=== PATIENT | male | born 1995 | race Caucasian/White ===

== ENCOUNTER 2023-04-29 02:37 | Inpatient (IN) | payer OTHER ==
[~2023-04-29] VITALS: Ht 175.3 cm; Wt 78.2 kg
[2023-04-29 03:26] LABS: HEMATOCRIT 48.6 % (42.0-52.0); MEAN CORPUSCULAR HEMOGLOBIN 31.4 pg (27.0-33.0); MEAN CORPUSCULAR VOLUME 89.7 fl (80.0-96.0); PLATELET COUNT, AUTOMATED 324 10^3/uL (150-450); RED BLOOD COUNT 5.42 10^6/uL (4.30-6.10); WHITE BLOOD COUNT 7.2 10^3/uL (4.0-10.0)
[2023-04-29 03:38] LABS: AMPHETAMINES LEVEL URINE NEGATIVE (NEGATIVE); BARBITURATES URINE NEGATIVE (NEGATIVE); BENZODIAZEPINES URINE NEGATIVE (NEGATIVE); METHADONE URINE NEGATIVE (NEGATIVE)
[2023-04-29 03:39] LABS: CANNABINOIDS URINE NEGATIVE (NEGATIVE); OPIATES URINE NEGATIVE (NEGATIVE); PHENCYCLIDINE URINE NEGATIVE (NEGATIVE)
[2023-04-29 03:41] LABS: COCAINE METABOLITE URINE POSITIVE (NEGATIVE)
[2023-04-29 03:46] LABS: ETHYL ALCOHOL (ETHANOL) 0.166 % (0.000-0.010)
[2023-04-29 03:48] LABS: ALBUMIN 4.6 G/DL (3.2-5.2); ALKALINE PHOSPHATASE 86 U/L (46-116); ALT/SGPT 17 U/L (7.0-40); AST/SGOT 15 U/L (<34); BILIRUBIN,DIRECT 0.2 MG/DL (<0.4); BILIRUBIN,TOTAL 0.5 MG/DL (0.3-1.2); BLOOD UREA NITROGEN 7 MG/DL (9-23); CALCIUM LEVEL 9.8 MG/DL (8.5-10.1); CARBON DIOXIDE LEVEL 23 MMOL/L (20-31); CHLORIDE LEVEL 103 MMOL/L (98-107); CREATININE FOR GFR 0.78 MG/DL (0.70-1.30); GLOMERULAR FILTRATION RATE > 60.0 (>60); GLUCOSE, FASTING 111 MG/DL (60-100); POTASSIUM SERUM 3.9 MMOL/L (3.5-5.1); SALICYLATE LEVEL < 3.0 MG/DL (<30); SODIUM LEVEL 137 MMOL/L (136-145); TOTAL PROTEIN 8.3 G/DL (5.7-8.2)
[2023-04-29] MEDS ORDERED: LORazepam 2 MG TAB PO PRN (09:45)
[2023-04-29] MEDS: THIAMINE 100 MG TAB PO SCH (10:00)
[2023-04-29] MEDS: MULTIVITAMINS/MINERALS THERAP 1 TAB PO SCH (10:01)
[2023-04-29] MEDS: FOLIC ACID 1MG TAB PO SCH (10:01)
[2023-04-29] MEDS: NICOTINE 21MG/24HR 1 EA TRANSDERMAL TD SCH (10:22)
[2023-04-29] MEDS ORDERED: MULT-90 PO (10:37)
[2023-04-29] MEDS ORDERED: OMEG10002 PO (10:37)
[2023-04-29] MEDS ORDERED: HOME MED LIST COMPLETE! XX SCH (10:40)
[2023-04-29 14:19] VITALS: BP 133/88
[2023-04-29 15:08] VITALS: BP 133/88; TEMP 97.9; O2SAT 96
[2023-04-29 22:22] VITALS: BP 128/85
[2023-04-30 06:40] VITALS: BP 127/76; TEMP 97.7
[2023-04-30 16:43] VITALS: BP 130/60; TEMP 97.8; O2SAT 98
[2023-05-01 06:14] VITALS: BP 134/88; TEMP 98.5; O2SAT 99
[2023-05-01 17:18] VITALS: BP 133/78; TEMP 98.1; O2SAT 98
[2023-05-02 06:14] VITALS: BP 131/85; TEMP 97.8; O2SAT 98
[2023-05-02 15:55] VITALS: BP 144/92; TEMP 98; O2SAT 99
[2023-05-03 06:26] VITALS: BP 136/84; TEMP 96.7; O2SAT 98
[2023-05-03] MEDS ORDERED: NICO21PAT TD (08:17)
== END 2023-05-03 12:31 | disposition home or self-care (01) | DRG 881 ==
LOC: M ED 02:37 → M ED INP 09:42 → M PSY 13:17
PROVIDERS: ADMIT Student in an Organized Health Care Education/Training Program; ATTEND Student in an Organized Health Care Education/Training Program
PROC: 8E0ZXY6 Isolation (ICD-10-PCS; principal; 2023-04-29)
DX: F32.A Depression, unspecified (principal); U07.1 COVID-19; R45.851 Suicidal ideations; F17.290 Nicotine dependence, other tobacco product, uncomplicated; F43.21 Adjustment disorder with depressed mood; F14.90 Cocaine use, unspecified, uncomplicated; F10.90 Alcohol use, unspecified, uncomplicated; Z20.822 Contact with and (suspected) exposure to COVID-19; Z63.0 Problems in relationship with spouse or partner